=== PATIENT | female | born 1970 | race African-American/Black ===

== ENCOUNTER 2017-06-16 21:53 | Emergency (ER) | payer MEDICAID, OTHER | END 2017-06-16 22:21 | disposition home or self-care (01) | LOC: MADERS 21:53 | DX: D69.3 Immune thrombocytopenic purpura (principal); G89.29 Other chronic pain; M54.5 Low back pain; E11.9 Type 2 diabetes mellitus without complications; J44.9 Chronic obstructive pulmonary disease, unspecified; F31.9 Bipolar disorder, unspecified; F41.9 Anxiety disorder, unspecified; F17.210 Nicotine dependence, cigarettes, uncomplicated; Z79.84 Long term (current) use of oral hypoglycemic drugs; Z79.899 Other long term (current) drug therapy | CPT/HCPCS: 99283 ==